=== PATIENT | male | born 1980 | race Hispanic/Latino ===

== ENCOUNTER 2018-08-28 13:40 | Emergency (ER) | payer SELFPAY ==
[2018-08-28 15:00] LABS: Bilirubin Negative (Negative); Blood, Urine Negative (Negative); Clarity CLEAR (Clear); Glucose, Urine (Dipstick) Negative (Negative); Leukocyte Small (Negative); Nitrite Negative (Negative); Protein, Urine (Dipstick) Negative (Neg-Trace); Specific Gravity, Urine 1.028 (1.002-1.036); pH, Urine 6.5 (5.0-9.0)
[2018-08-28 15:02] LABS: Bacteria/HPF None Seen HPF (None Seen); Hyaline Casts/LPF 4-6 HYALINE CAST LPF (0-3 Hyaline); Pathc Cast-AUWi Flag 0.58 (0-2.49); Squamous Epithelial 0-3 HPF (0-3)
[2018-08-30 01:41] LABS: Chlamydia by PCR Not Detected (NotDetected); GC by PCR Not Detected (NotDetected)
== END 2018-08-28 14:50 | disposition home or self-care (01) ==
LOC: ERS 13:40
DX: N41.0 Acute prostatitis (principal)
CPT/HCPCS: 81003; 81015; 87086; 87491; 87591; 99283

== ENCOUNTER 2019-01-04 20:26 | Emergency (ER) | payer SELFPAY | END 2019-01-04 23:31 | disposition home or self-care (01) | LOC: ERS 20:26 | DX: S01.01XA Laceration without foreign body of scalp, initial encounter (principal); W20.8XXA Other cause of strike by thrown, projected or falling object, initial encounter | CPT/HCPCS: 12001 ==